=== PATIENT | male | born 1950 | race Caucasian/White ===

== ENCOUNTER → 2022-03-20 | Outpatient (CLI) | payer MEDICARE | END | disposition home or self-care (01) | LOC: LAB SHORT 19:13 → LAB 19:13 | DX: N39.0 Urinary tract infection, site not specified (principal) | CPT/HCPCS: 87077; 87086; 87186 ==

== ENCOUNTER 2022-10-24 11:53 | Emergency (ER) | payer MEDICARE ==
[~2022-10-24] VITALS: Ht 185.4 cm; Wt 101.6 kg
[2022-10-24] MEDS ORDERED: Percocet 10-321 EACH PO (13:23)
== END 2022-10-24 13:41 | disposition home or self-care (01) ==
LOC: ER 11:53
DX: M89.9 Disorder of bone, unspecified (principal); E11.9 Type 2 diabetes mellitus without complications; I10 Essential (primary) hypertension; G20 Parkinson's disease; Z88.8 Allergy status to other drugs, medicaments and biological substances
CPT/HCPCS: 73030